=== PATIENT | male | born 1970 | race Caucasian/White ===

== ENCOUNTER → 2019-05-22 | Outpatient (CLI) | payer OTHER ==
--- NOTE | 2019-05-22 16:34 | Diagnostic Imaging Report ---
EXAMINATION: Magnetic resonance imaging of the left shoulder without contrast. DATE: May 22, 2019. COMPARISON: None. HISTORY: 48-year-old male, left shoulder pain. TECHNIQUE: Magnetic Resonance Imaging sequences were performed of the shoulder without contrast. FINDINGS: ROTATOR CUFF, LIGAMENTS, TENDONS, AND MUSCLES: The supraspinatus, infraspinatus, teres minor, and subscapularis tendons and muscles are intact. There is normal rotator cuff muscle bulk and signal. LONG HEAD OF BICEPS: The biceps labral attachment and long head of the biceps tendon is intact. The long head of the biceps tendon is normally positioned within the bicipital groove. GLENOHUMERAL JOINT: The humeral head is well positioned relative to the glenoid. There is a superior labral tear with extension posteriorly. The tear is suspected to extend from at least the 12 o'clock position, the biceps labral attachment to involve the posterior labrum to approximately the 9 o'clock position. There is a very large associated paralabral cyst which measures 4.4 x 2.1 x 4.8 cm in size. The anterior labrum is without definite discrete tear. There is no discretely identified articular cartilage defect. There is no glenohumeral joint effusion. ACROMIOCLAVICULAR JOINT: The acromioclavicular joint is normally aligned. The coracoclavicular and coracoacromial ligaments are intact. There are very mild acromioclavicular degenerative changes without undersurface osteophyte. BONE: The bones all have normal configuration. The bone marrow signal is within normal limits. Specifically, negative for fracture, osteomyelitis, osteonecrosis, or marrow replacing process. BURSAE AND SOFT TISSUES: The bursae and additional soft tissues not already described above surrounding the shoulder are unremarkable. IMPRESSION: 1. Superior labral tear with extension posteriorly to involve the posterior labrum to approximately the 9 o'clock position with very large associated paralabral cyst which measures 4.4 x 2.1 x 4.8 cm in size. 2. No discretely identified glenohumeral cartilage defect. No glenohumeral joint effusion. 3. Intact rotator cuff. 4. Very mild acromioclavicular degenerative changes without large undersurface osteophyte. 5. No acute fracture or bone contusion. Unremarkable osseous morphology. Dictated by: Dictated on workstation # [id number]
== END ==
LOC: RAD 15:11
PROVIDERS: ATTEND Family Medicine
DX: S43.402A Unspecified sprain of left shoulder joint, initial encounter (principal); M19.012 Primary osteoarthritis, left shoulder
CPT/HCPCS: 73221

== ENCOUNTER → 2021-03-06 | Outpatient (CLI) | payer BC ==
--- NOTE | 2021-03-06 09:12 | Diagnostic Imaging Report ---
INDICATION: Cough and shortness of breath. Time of exam: 8:51 AM Correlation is made with prior chest from 06/07/2008. The heart size is normal. The pulmonary vascularity is unremarkable. The lungs are clear. No infiltrate, effusion or pneumothorax is detected. IMPRESSION: No acute cardiopulmonary process is detected. Dictated by: Dictated on workstation # [id number]
--- NOTE | 2021-03-06 10:17 | Diagnostic Imaging Report ---
CT CHEST WO TECHNIQUE: Multiple contiguous axial images were obtained through the chest without the use of intravenous contrast. All CT scans use one or more of the following dose optimizing techniques: automated exposure control, MA and/or KvP adjustment based on a patient size and exam type, or iterative reconstruction. INDICATION: Cough, wheezing and shortness of breath COMPARISON: None available. FINDINGS: Lungs and airway: No endoluminal nodule within the trachea. Mild paraseptal emphysema is present. No honeycombing or bronchiectasis. No pulmonary mass or consolidation. No pulmonary cysts or micronodules. Pleura: No pleural effusion or pneumothorax. Heart and mediastinum: No supraclavicular or axillary lymphadenopathy. No mediastinal or hilar lymphadenopathy. The heart is normal in size without pericardial effusion. Moderate coronary artery calcifications are present. Normal caliber thoracic aorta. Upper abdomen: No abnormality in the upper abdomen. Musculoskeletal: Normal regional skeleton. IMPRESSION: 1. No acute cardiopulmonary process. 2. Mild paraseptal emphysema. No features of interstitial lung disease. 3. Moderate coronary artery disease. Dictated by: Dictated on workstation # [id number]
== END ==
LOC: RAD FS 08:36
PROVIDERS: ATTEND Family Medicine
DX: J43.8 Other emphysema (principal); I25.10 Atherosclerotic heart disease of native coronary artery without angina pectoris; J20.9 Acute bronchitis, unspecified; J01.90 Acute sinusitis, unspecified; J30.9 Allergic rhinitis, unspecified; F41.9 Anxiety disorder, unspecified; M94.269 Chondromalacia, unspecified knee; B35.9 Dermatophytosis, unspecified; I10 Essential (primary) hypertension; L73.9 Follicular disorder, unspecified; N52.2 Drug-induced erectile dysfunction
CPT/HCPCS: 71046; 71250

== ENCOUNTER → 2021-04-23 | Outpatient (CLI) | payer BC ==
[~2021-04-23] MED LIST: CATHETER FLUSH 10 ML SYR IV PRN
[2021-04-23 13:11] VITALS: BP 130/83
[2021-04-27 09:13] VITALS: BP 137/84
--- NOTE | 2021-04-27 09:13 | Cardiology Stress Test Report ---
Stress Test Report Date of Procedure/Referring: PCP Amador Roberson Jr, MD Admitting Physician Marc Salazar DO Indications: Coronary atherosclerosis due to calcified coronary lesion. Baseline Heart Rate: 75 Baseline Blood Pressure: Blood Pressure Systolic: 137 Blood Pressure Diastolic: 84 Vital Signs Date Time Temp Pulse Resp B/P (MAP) Pulse Ox O2 Delivery O2 Flow Rate FiO2 04/23/21 13:11 81 18 130/83 (99) 99 Room Air Baseline Vital Signs Vital Signs Date Time Temp Pulse Resp B/P (MAP) Pulse Ox O2 Delivery O2 Flow Rate FiO2 04/23/21 13:11 81 18 130/83 (99) 99 Room Air Summary: After explaining the procedure and details to the patient, he signed the consent and was brought to the stress nuclear laboratory. STRESS TEST PROCEDURE: The patient was exercised for 4 minutes and 45 seconds of the standard Toro protocol achieving a maximum met level of 6.8. The resting heart rate was 75 bpm and the peak heart rate was 156 bpm, which represents 90% of the maximum predicted heart rate. The resting blood pressure was 137/84 mmHg and the peak blood pressure was 220/95 mmHg. This represents normal heart rate and a hypertensive blood pressure response to exercise. The test was stopped due to dyspnea. There was no exercise-induced chest discomfort, arrhythmias, or electrocardiogram changes during the test. The patient exhibited poor exercise capacity for age. NUCLEAR PROCEDURE: The patient was administered 9.94 mCi of technetium Myoview for the rest images. The patient was subsequently administered 28.7 mCi of technetium Myoview for the stress images. Following a short wait after each injection, imaging was obtained. The images were subsequently processed and reformatted in the usual views. Gated imaging was obtained. There was a mild degree of gastrointestinal attenuation artifact noted. NUCLEAR RESULTS: There was normal myocardial perfusion in all segments without evidence of infarction or ischemia. There was normal left ventricular chamber size with an end-diastolic volume of 60 mL and an end-systolic volume of 22 mL. There was no evidence of transient ischemic dilatation. The TID ratio was 1.04. There was normal wall motion in all segments with a calculated ejection fraction of 63%. TID: 1.04 Conclusion: 1. Normal heart rate and a hypertensive blood pressure response to exercise. 2. There was no exercise-induced chest discomfort. 3. There were no exercise-induced arrhythmias or electrocardiogram changes. 4. The patient exhibited poor exercise capacity for age at 4 minutes and 45 seconds of the standard Toro protocol. 5. There was normal myocardial perfusion in all segments without evidence of infarction or ischemia. 6. There was normal wall motion in all segments with a calculated ejection fraction of 63%. AMADOR ROBERSON JR, MD Apr 27, 2021 09:13
== END ==
LOC: CARD 11:00
PROVIDERS: ATTEND Internal Medicine Cardiovascular Disease
DX: I51.7 Cardiomegaly (principal); I25.10 Atherosclerotic heart disease of native coronary artery without angina pectoris
CPT/HCPCS: 78452; 93017; 93306; A9502

== ENCOUNTER → 2022-03-10 | Outpatient (CLI) | payer BC ==
--- NOTE | 2022-03-10 14:25 | Diagnostic Imaging Report ---
INDICATION: HX OF CALCULUS OF KIDNEY COMPARISON: None FINDINGS: Single supine radiographic view of the abdomen was obtained and demonstrates nondistended loops of small bowel. There is no large collection of free peritoneal air. Moderate air and stool are seen scattered throughout the colon. No unexpected extraosseous calcifications or radiopaque foreign bodies are seen. Bony structures show no gross acute abnormalities. IMPRESSION: 1. Nonobstructed small bowel gas pattern. 2. Moderate colonic air and stool. Please correlate for constipation Dictated by: Dictated on workstation # [id number]
== END ==
LOC: RAD FS 12:38
PROVIDERS: ATTEND Urology
DX: Z87.442 Personal history of urinary calculi (principal)
CPT/HCPCS: 74018

== ENCOUNTER → 2022-08-10 | Outpatient (CLI) | payer BC | LOC: CARDFS 13:29 | PROVIDERS: ATTEND Internal Medicine Cardiovascular Disease | DX: I51.7 Cardiomegaly (principal); I25.84 Coronary atherosclerosis due to calcified coronary lesion | CPT/HCPCS: 93306 ==

== ENCOUNTER → 2022-08-12 | Outpatient (CLI) | payer BC ==
[2022-08-12 09:10] VITALS: BP 130/93
--- NOTE | 2022-08-12 16:12 | NUCLEAR STRESS TEST ---
TREADMILL NUCLEAR STRESS TEST Date of procedure: 08/12/2022. Primary care provider: Inés Umanzor MD. Admitting physician: Amador Roberson Jr., MD. INDICATION: Calcification of coronary arteries. BASELINE ELECTROCARDIOGRAM: Sinus tachycardia at 103 bpm with left atrial abnormality, nonspecific intraventricular conduction delay and poor R wave progression. STRESS TEST PROCEDURE: The patient was exercised for a total of 3 minutes and 0 seconds of the standard Toro protocol achieving a maximum MET level of 4.6. The resting heart rate was 103 bpm and the peak heart rate was 159 bpm, which represents 92% of the maximum predicted heart rate. The resting blood pressure was 130/93 mmHg and the peak blood pressure was 187/89 mmHg. This represents a tachycardia heart rate and a normal blood pressure response to exercise. The test was stopped due to target heart rate attained. There was no chest discomfort during the test. There were no arrhythmias during the test. There were no significant stress induced electrocardiogram changes. The patient exhibited fair exercise capacity for age. NUCLEAR PROCEDURE: The patient was administered 10.8 mCi of intravenous technetium 99m Tetrofosmin at rest for the rest images. The patient was sub sequently administered 30 mCi of intravenous technetium 99 M Tetrofosmin at peak stress for the stress images. Following an appropriate wait after each injection, imaging was obtained. The images were subsequently processed and reformatted in the usual views. Gated imaging was obtained. The image quality was adequate with a mild degree of gastrointestinal attenuation artifact. CT attenuation correction was used as a adjunct to standard imaging. Both the corrected and uncorrected images were reviewed for interpretation. NUCLEAR RESULTS: There was normal myocardial perfusion in all segments without evidence of infarction or ischemia. There was normal left ventricular chamber size with an end-diastolic volume of 52 mL and an end-systolic volume of 25 mL. There was no evidence of transient ischemic dilatation. The TID ratio was 0.94. There was normal wall motion in all segments with a calculated ejection fraction of 50 to %. IMPRESSION: 1. Tachycardic heart rate and a normal blood pressure response to exercise. 2. There was no exercise-induced chest discomfort, arrhythmias, or electrocardiogram changes during the test. 3. The patient exhibited fair exercise capacity for age at 3 minutes of the Toro protocol. 4. There was normal myocardial perfusion in all segments without evidence of infarction or ischemia. 5. There was normal wall motion in all segments with a calculated ejection fraction of 52%. Certain portions of this document may have been dictated utilizing voice recognition technology. Inherent to this technology, typographical and grammatical errors may exist. As much as I am diligent to identify and correct these mistakes, some errors may remain in the document. AMADOR ROBERSON JR, MD Aug 12, 2022 16:12
== END ==
LOC: CARD 07:45
PROVIDERS: ATTEND Internal Medicine Cardiovascular Disease
DX: I25.84 Coronary atherosclerosis due to calcified coronary lesion (principal)
CPT/HCPCS: 78452; 93017; A9502

== ENCOUNTER 2022-09-06 02:55 | Emergency (ER) | payer BC ==
[2022-09-06 02:55] VITALS: BP 0/0
--- NOTE | 2022-09-06 03:22 | ED CPR ---
HPI-CPR General Chief Complaint: Code Blue Stated Complaint: CODE BLUE History of Present Illness Date Seen by Provider: Sep 06, 2022 Time Seen by Provider: 02:50 Initial Comments 51-year-old male with PMH of long-haul COVID with chronic respiratory issues, is brought in by EMS in cardiac arrest. Patient lives with his 17-year-old daughter and nephew. Patient called 911 and was unresponsive by the time EMS arrived. EMS and police had to kick down the door to enter the home and was found to be unresponsive and asystole on the monitor the entire time, 3 rounds of epi given, and intubated in the field, without any change. Patient's daughter and nephew did not know what was happening but witnessed EMS leaving with the pt. Allergies and Home Medications Allergies Coded Allergies: No Known Drug Allergies (Verified Allergy, Unknown, 06/07/08) Patient Home Medication List Home Medication List Reviewed: Yes Review of Systems Review of Systems Constitutional: no symptoms reported EENTM: No Symptoms Reported Respiratory: Shortness of Air Cardiovascular: No Symptoms Reported Gastrointestinal: No Symptoms Reported Genitourinary: No Symptoms Reported Musculoskeletal: no symptoms reported Skin: no symptoms reported Psychiatric/Neurological: No Symptoms Reported Endocrine: No Symptoms Reported Hematologic/Lymphatic: No Symptoms Reported Physical Exam Vital Signs Vital Signs - First Documented 09/06/22 02:55 Pulse 0 Resp 0 B/P (MAP) 0/0 (0) Pulse Ox 0 O2 Delivery Ambu Bag Capillary Refill : Height, Weight, BMI Height: '" Weight: lbs. oz. kg; BMI Method: General Appearance: Other (unresponsive) HEENT: Other (Pupils fixed and dilated) Respiratory: Other (absent lung sounds) Cardiovascular: Other (asystole, no pulse) Neurologic/Psychiatric: Other (unresponsive) Skin: Pallor Procedures/Interventions CPR: in process on arrival, epi given right before rolling into ED. Pt asystole on monitor, pupils fixed and dilated. Defibrillation: none Rhythm: Asystole Arrest is not witnessed, no bystander CPR, no ROSC before transport, and patient did not need to be shocked prior to transport, and resuscitation was going on at least 40 minutes in the field prior to coming to the ER. Continued chest compressions in ER but efforts futile based on criteria.Pupils fixed and dilated on arrival. Time of : 02:56 Progress/Results/Core Measures Results/Orders Vital Signs/I&O 09/06/22 02:55 Pulse 0 Resp 0 B/P (MAP) 0/0 (0) Pulse Ox 0 O2 Delivery Ambu Bag Departure Impression Primary Impression: Cardiopulmonary arrest Disposition: 20 Condition: Departure-Patient Inst. Referrals: PAUL HARPER MD (PCP/Family) Primary Care Physician ARLIN STEINER MD Sep 06, 2022 03:22
== END 2022-09-06 09:33 | disposition expired ==
LOC: EDUNIT# 02:55 → ER FS 03:01
DX: I46.9 Cardiac arrest, cause unspecified (principal); Z86.16 Personal history of COVID-19
CPT/HCPCS: 36680